=== PATIENT | female | born 1990 | race Caucasian/White ===

== ENCOUNTER 2017-10-02 11:48 | Emergency (ER) | payer MEDICAID ==
[~2017-10-02] VITALS: Ht 160 cm; Wt 60.6 kg
[~2017-10-02 11:48] MED LIST: CALC-649 PO; PREN1TAB49 PO
[2017-10-02 11:58] VITALS: Ht 160 cm; Wt 60.6 kg
--- NOTE | 2017-10-02 13:13 | ERD ---
ER Documentation Chief Complaint Chief Complaint FEVER [facility] PRODUCTIVE COUGH SINCE FRIDAY HPI Otherwise healthy 19-year-old female presents with a chief complaint of productive cough 4-5 days. Also describes pharyngitis and subjective fever. This morning when she was coughing she describes blood-tinged sputum that worried her so she comes to the emergency department for evaluation. Tylenol with minimal relief. Patient denies chills, body aches, meningismus, headache, shortness of breath, chest pain, dysphagia, change in voice, drooling, abdominal pain. Patient has no other complaints describes no other associated manifestations. ROS All systems reviewed and are negative except as per history of present illness. Medications Home Meds Active Scripts Benzonatate* (Tessalon Perle*) 100 Mg Capsule, 100 MG PO Q8H Y for COUGH for 3 Days, CAP Prov:JEANNINE GARCIA PA-C 10/02/17 Reported Medications Calcium Carbonate (Calcium) 1 Tab Tablet, 1 TAB PO BID 12/26/11 Vits W-Ca,Fe,Fa(<1MG) () 1 Tab Tablet, PO DAILY 12/23/11 Allergies Allergies: Coded Allergies: No Known Drug Allergies (Verified Allergy, 12/23/11) PMhx/Soc Medical and Surgical Hx: pt denies Medical Hx, pt denies Surgical Hx Hx Alcohol Use: No Hx Substance Use: No Hx Tobacco Use: No Smoking Status: Never smoker Physical Exam Vitals Vital Signs Date Time Temp Pulse Resp B/P Pulse Ox O2 Delivery O2 Flow Rate FiO2 10/02/17 11:58 99.8 87 18 143/82 97 Physical Exam Const: Healthy-appearing, well-nourished, well-developed, no acute distress. Throat: Erythematous oropharynx. No exudates visualized. Tonsils WNL. Moist mucous membranes. Neck: No posterior lymphadenopathy, masses or goiter palpated. Trachea midline. Full range of motion. Supple. ~ No meningismus. Skin: No petechiae or rashes. No ulcer, induration, jaundice. Good turgor. Resp: No dyspnea, stridor, tripoding or drooling. Good air movement. Clear to auscultation bilaterally. Head: Normocephalic, Atraumatic. Eyes: Non-injected; No scleral erythema, discharge or foreign body. EOMI bilaterally. PERRLA. Ears: Normal External Ears, EACs clear, TM normal bilaterally without erythema. Nose: Normal nose without discharge, septal deviation, or sinus tenderness. Cardio: Regular rate and rhythm; No murmurs, gallops or rubs auscultated. No JVD grossly observed. Radial and posterior tibial pulses 2+ bilaterally. Capillary refill less than 2 seconds. MS: Normal motor strength, normal tone with gross examination. Back: No midline, flank or CVA tenderness. Ext: No cyanosis, edema or palpable cord. Normal movement of all extremities grossly observed. Neur: Awake, alert and oriented x3. Neurovascularly intact bilaterally. Psych: Normal Mood and Affect. Procedures/MDM Otherwise healthy 27-year-old female presents with a chief complaint of cough and subjective fever 4 days, and blood-tinged sputum starting this morning. Patient has no difficulty breathing. X-ray obtained, read by the radiologist, given the following impression: Unremarkable. At this time a little suspicion for PE, pneumothorax, hemothorax, GI bleed, ACS, endangerment of the airway, pneumonia or other SBI. Most likely diagnosis is acute bronchitis versus other viral illness. No suspicion for bacterial involvement. Antibiotics not indicated at this time. We will give Tessalon Perles for symptomatic relief 3 days. I have spoke with the patient regarding their condition and future management. They have verbally responded that they understand their status and treatment plan. The patients vitals are stable, and their current condition is appropriate for discharge. The patient will be given discharge instructions with return precautions. Discharge medications: Tessalon Perles Departure Diagnosis: Primary Impression: Cough Condition: Stable Additional Instructions: Follow up with your PCP within the next 1-3 days for a more thorough evaluation and a possible referral to a specialist. Return the the emergency department immediately if symptoms worsen or change. If you have any questions regarding medications, ask your pharmacist or us before you leave. If any adverse reactions occur while taking your medications, discontinue the treatment and return to the emergency department immediately. Take your medications as directed, and complete the entire course of treatment. JEANNINE GARCIA PA-C Oct 02, 2017 13:13
[2017-10-02] MEDS ORDERED: BENZ100C70 PO (13:30)
--- NOTE | 2017-10-02 16:54 | RADRPT ---
PROCEDURE: XR Chest. CLINICAL INDICATION: Cough TECHNIQUE: AP Portable chest. COMPARISON: None available FINDINGS: The soft tissues and bones are normal. No focal infiltrates, masses, or effusions are noted. The m ediastinum and heart are normal. No pneumothorax is present. IMPRESSION: 1. No radiographic evidence for acute cardiopulmonary disease RPTAT: [facility] .Sheree Sage MD, Date Time Electronically viewed and signed by .Sheree Sage MD, on 10/02/2017 13:34 .C/
== END 2017-10-02 14:08 | disposition home or self-care (01) ==
LOC: FTE 11:48
DX: R05 Cough (principal)
CPT/HCPCS: 71010; Z7502

== ENCOUNTER 2018-10-17 08:53 | Emergency (ER) | payer MEDICAID ==
[~2018-10-17] VITALS: Wt 61.6 kg
[~2018-10-17 08:53] MED LIST changes: +BENZ-6 PO
[2018-10-17] MEDS ORDERED: NAPROXEN 500 MG TAB PO ONE (09:30)
[2018-10-17] MEDS ORDERED: PROM6.2515 PO (10:03)
[2018-10-17] MEDS ORDERED: NITR-58 PO (10:03)
[2018-10-17] MEDS ORDERED: NAPR-985 PO (10:03)
[2018-10-17] MEDS ORDERED: BENZ-6 PO (10:03)
--- NOTE | 2018-10-17 10:51 | ERD ---
ER Documentation Chief Complaint Chief Complaint L SIDED FLANK PAIN X 2 WEEKS HPI 28-year-old female presenting with left-sided flank pain times 2 weeks. Patient has had cough and mild chest pain when she coughs. Denies shortness of breath. Denies dysuria but feels pressure in the pelvic region and feels that she needs to urinate frequently. She has some mild occasional flank pain. Patient denies any vaginal bleeding. LNMP October 03. Denies medical problems. NKDA. Surgical history denies. Social history denies ROS All systems reviewed and are negative except as per history of present illness. Medications Home Meds Active Scripts Promethazine Hcl* (Promethazine Hcl* Syrup) 6.25 Mg/5 Ml Syrup, 6.25 MG PO Q6H PRN for COUGH, #100 ML Prov:DESTINY MAHAN PA-C 10/17/18 Benzonatate* (Tessalon Perle*) 100 Mg Capsule, 100 MG PO Q8H PRN for COUGH, #30 CAP Prov:DESTINY MAHAN PA-C 10/17/18 Naproxen* (Naprosyn*) 500 Mg Tablet, 500 MG PO BID PRN for PAIN AND/OR INFLAMMATION, #30 TAB Prov:DESTINY MAHAN PA-C 10/17/18 Nitrofurantoin Monohyd Macrocr* (Macrobid*) 100 Mg Capsr, 100 MG PO BID for 14 Days, CAP Prov:DESTINY MAHAN PA-C 10/17/18 Benzonatate* (Tessalon Perle*) 100 Mg Capsule, 100 MG PO Q8H PRN for COUGH for 3 Days, CAP Prov:JEANNINE GARCIA PA-C 10/02/17 Reported Medications Calcium Carbonate (Calcium) 1 Tab Tablet, 1 TAB PO BID 12/26/11 Vits W-Ca,Fe,Fa(<1MG) () 1 Tab Tablet, PO DAILY 12/23/11 Allergies Allergies: Coded Allergies: No Known Drug Allergies (Verified Allergy, Unknown, 10/17/18) PMhx/Soc Medical and Surgical Hx: pt denies Surgical Hx Hx Neurological Disorder: No Hx Respiratory Disorders: Yes (pneumonia) Hx Cardiac Disorders: No Hx Psychiatric Problems: No Hx Miscellaneous Medical Probl: No Hx Alcohol Use: Yes (socially) Hx Substance Use: No Hx Tobacco Use: No FmHx Family History: No diabetes, No coronary disease, No other Physical Exam Vitals Vital Signs Date Temp Pulse Resp B/P (MAP) Pulse Ox O2 O2 Flow FiO2 Time Delivery Rate 10/17/18 98.6 76 18 153/63 99 08:57 (93) Physical Exam GENERAL: The patient is well-appearing, well-nourished, in no acute distress HEENT: Atraumatic. Conjunctivae are pink. Pupils equal, round, and reactive to light. There is no scleral icterus. Tympanic membranes clear bilaterally. Oropharynx clear. No nystagmus or photophobia. CHEST: Clear to auscultation bilaterally. There are no rales, wheezes or rhonchi. HEART: Regular rate and rhythm. No murmurs, clicks, rubs or gallops. No S3 or S4. ABDOMEN:Soft, nontender and nondistended. Good bowel sounds. No rebound or guarding. No gross peritonitis. No gross organomegaly or masses. No Membreno sign or McBurney point tenderness. BACK: No midline or flank tenderness. Results 24 hrs Laboratory Tests Test 10/17/18 09:45 10/17/18 09:47 Bedside Urine pH (LAB) 7.0 Bedside Urine Protein (LAB) Trace Bedside Urine Glucose (UA) Negative Bedside Urine Ketones (LAB) Negative Bedside Urine Blood 2+ Bedside Urine Nitrite (LAB) Negative Bedside Urine Leukocyte Esterase (L Negative POC Beta HCG, Qualitative NEGATIVE Current Medications Medications Dose Sig/Layne Start Time Status Last (Trade) Ordered Route PRN Stop Time Admin Dose Reason Admin Naproxen 500 mg ONCE ONCE 10/17/18 DC 10/17/18 (Naprosyn) PO 09:30 09:59 10/17/18 09:31 Procedures/MDM ER course: Urine collected. Negative . MDM: 28-year-old female presenting with urinary symptoms. Patient may have symptomatic urine infection I will treat with antibiotics. I have low suspicion for pyelonephritis. I have low suspicion for septic stone. I have low suspicion for pelvic emergency. Exam is non-concerning and I did not feel that blood work or imaging is indicated. Patient likely is experiencing some rib space pain secondary to chronic cough and will be treated with symptomatic medications. Patient is discharged stricter precautions and told to follow-up with primary care. Patient is told symptoms change or worsen to immediately return to the ER. All questions answered discharge Departure Diagnosis: Primary Impression: Dysuria Condition: Stable Patient Instructions: Dysuria Referrals: [facility] YOU HAVE RECEIVED A MEDICAL SCREENING EXAM AND THE RESULTS INDICATE THAT YOU DO NOT HAVE A CONDITION THAT REQUIRES URGENT TREATMENT IN THE EMERGENCY DEPARTMENT. FURTHER EVALUATION AND TREATMENT OF YOUR CONDITION CAN WAIT UNTIL YOU ARE SEEN IN YOUR DOCTORS OFFICE WITHIN THE NEXT 1-2 DAYS. IT IS YOUR RESPONSIBILITY TO MAKE AN APPOINTMENT FOR FOLOW-UP CARE. IF YOU HAVE A PRIMARY DOCTOR --you should call your primary doctor and schedule an appointment IF YOU DO NOT HAVE A PRIMARY DOCTOR YOU CAN CALL OUR PHYSICIAN REFERRAL HOTLINE AT IF YOU CAN NOT AFFORD TO SEE A PHYSICIAN YOU CAN CHOSE FROM THE FOLLOWING [facility] CL[facility]ICS [facility] [address] [facility] [address] [facility] [facility] [address] [facility] [address] [facility] [address] [facility] [place]. [facility] [address] Additional Instructions: FOLLOW UP WITH YOUR PRIMARY CARE PHYSICIAN TOMORROW.Return to this facility if you are not improving as expected. DESTINY MAHAN PA-C Oct 17, 2018 10:51
== END 2018-10-17 10:10 | disposition home or self-care (01) ==
LOC: FTE 08:53
DX: R30.0 Dysuria (principal); R10.2 Pelvic and perineal pain
CPT/HCPCS: 81003; 81025; Z7610; 99283

== ENCOUNTER 2018-10-30 15:42 | Emergency (ER) | payer MEDICAID ==
[~2018-10-30] VITALS: Wt 62.1 kg
[~2018-10-30 15:42] MED LIST changes: +NAPR-985 PO; +NITR-58 PO; +PROM6.2515 PO
[2018-10-30 15:48] VITALS: BP 131/80; PULSE 78; RESP 18
[2018-10-30] MEDS ORDERED: AZIT250T PO (17:27)
[2018-10-30] MEDS ORDERED: ALBU18HF INHALATION (17:27)
--- NOTE | 2018-10-30 18:28 | ERD ---
ER Documentation Chief Complaint Chief Complaint FLU SYMPTOMS X 1 MONTH WITH DRY COUGH HPI 28-year-old female patient with no significant past medical history presents to ED complaining of flulike symptoms, dry cough. Patient reports that she has tried taking cough medication such as promethazine, Tessalon Perles without any relief. Denies any shortness of breath, wheezing, abdominal pain, nausea, vomiting, fever, chills. Reports that her daughter is sick with similar symptoms. ROS All systems reviewed and are negative except as per history of present illness. Medications Home Meds Active Scripts Albuterol Sulfate* (Ventolin HFA*) 18 Gm Hfa.aer.ad, 2 PUFF INHALATION Q4H, #1 INHALER Prov:UMBERTO HOFFMAN PA-C 10/30/18 Azithromycin* (Zithromax*) 250 Mg Tablet, 250 MG PO .ZPACK DIRECTED, #6 TAB TAKE 500 MG (2 TABS) THE FIRST DAY THEN 250 MG (1 TAB) DAYS 2-5 Prov:UMBERTO HOFFMAN PA-C 10/30/18 Promethazine Hcl* (Promethazine Hcl* Syrup) 6.25 Mg/5 Ml Syrup, 6.25 MG PO Q6H PRN for COUGH, #100 ML Prov:DESTINY MAHAN PA-C 10/17/18 Benzonatate* (Tessalon Perle*) 100 Mg Capsule, 100 MG PO Q8H PRN for COUGH, #30 CAP Prov:DESTINY MAHAN PA-C 10/17/18 Naproxen* (Naprosyn*) 500 Mg Tablet, 500 MG PO BID PRN for PAIN AND/OR INFLAMMATION, #30 TAB Prov:DESTINY MAHAN PA-C 10/17/18 Nitrofurantoin Monohyd Macrocr* (Macrobid*) 100 Mg Capsr, 100 MG PO BID for 14 Days, CAP Prov:DESTINY MAHAN PA-C 10/17/18 Benzonatate* (Tessalon Perle*) 100 Mg Capsule, 100 MG PO Q8H PRN for COUGH for 3 Days, CAP Prov:JEANNINE GARCIA PA-C 10/02/17 Reported Medications Calcium Carbonate (Calcium) 1 Tab Tablet, 1 TAB PO BID 12/26/11 Vits W-Ca,Fe,Fa(<1MG) () 1 Tab Tablet, PO DAILY 12/23/11 Allergies Allergies: Coded Allergies: No Known Drug Allergies (Verified Allergy, Unknown, 10/17/18) PMhx/Soc Hx Neurological Disorder: No Hx Respiratory Disorders: Yes (pneumonia) Hx Cardiac Disorders: No Hx Psychiatric Problems: No Hx Miscellaneous Medical Probl: No Hx Alcohol Use: Yes (socially) Hx Substance Use: No Hx Tobacco Use: No Smoking Status: Never smoker FmHx Family History: No diabetes, No coronary disease Physical Exam Vitals Vital Signs Date Temp Pulse Resp B/P (MAP) Pulse Ox O2 O2 Flow FiO2 Time Delivery Rate 10/30/18 98.1 78 18 131/80 99 15:48 (97) Physical Exam Const: [id number], well-nourished. In no acute distress. Head: Atraumatic, normocephalic Eyes: Normal Conjunctiva without injection. No purulent discharge. PERRL. EOMI ENT: Normal external ear. Ear canal without erythema. Tympanic membrane pearly chen without effusion or bulging. Nasal canal clear with normal turbinates. Moist oropharynx without tonsillar exudates. Non-erythematous pharynx. Uvula midline. No drooling. No trismus. Neck: Full range of motion. No meningismus. No cervical lymphadenopathy. Resp: Clear to auscultation bilaterally. No wheezing, rhonchi, rales, or crackles. No accessory muscle use. No retractions. Cardio: Regular rate and rhythm. No murmurs, rubs or gallops. Abd: Soft, non tender, non distended. Normal bowel sounds. No palpable masses. No rebound tenderness. No guarding. Skin: No petechiae or rashes Back: No midline tenderness. No CVA tenderness. Ext: No cyanosis, or edema. Neur: Awake and alert. Psych: Normal Mood and Affect Procedures/MDM 28-year-old female patient with no significant past medical history presents to the ED a cough that has been going on for the last month. Patient is afebrile and nontoxic-appearing. An inhaler, Zithromax was prescribed to patient as patient appears to have bronchitis. Patient will be covered for bacterial etiology. Low suspicion for acute myocardial infarction, pneumothorax, pericarditis, myocarditis, endocarditis, pneumonia, cardiac tamponade, pulmonary embolism, pleural effusion, AAA, aortic dissection, Boerhaave's syndrome, cardiac dysrhythmias,meningitis, intracranial bleed, seizure, stroke, TIA or other emergent conditions. Diagnosis: Cough, Rhinorrhea Discharge medications: Ventolin, Zithromax Follow up with primary care physician in 1-2 days. Instructed patient to return to the ED sooner for any worsening symptoms. Patient's questions were answered. Patient is hemodynamically stable. Patient understood and agreed with discharge plan. Patient discharged stable. Disclaimer: Inadvertent spelling and grammatical errors are likely due to EHR/dictation software use and do not reflect on the overall quality of patient care. Also, please note that the electronic time recorded on this note does not necessarily reflect the actual time of the patient encounter. Departure Diagnosis: Primary Impression: Cough Additional Impression: Rhinorrhea Condition: Stable Patient Instructions: Bronchitis, Antiobiotic Treatment (Adult) Referrals: [facility] YOU HAVE RECEIVED A MEDICAL SCREENING EXAM AND THE RESULTS INDICATE THAT YOU DO NOT HAVE A CONDITION THAT REQUIRES URGENT TREATMENT IN THE EMERGENCY DEPARTMENT. FURTHER EVALUATION AND TREATMENT OF YOUR CONDITION CAN WAIT UNTIL YOU ARE SEEN IN YOUR DOCTORS OFFICE WITHIN THE NEXT 1-2 DAYS. IT IS YOUR RESPONSIBILITY TO MAKE AN APPOINTMENT FOR FOLOW-UP CARE. IF YOU HAVE A PRIMARY DOCTOR --you should call your primary doctor and schedule an appointment IF YOU DO NOT HAVE A PRIMARY DOCTOR YOU CAN CALL OUR PHYSICIAN REFERRAL HOTLINE AT IF YOU CAN NOT AFFORD TO SEE A PHYSICIAN YOU CAN CHOSE FROM THE FOLLOWING [facility] [address] [facility]. [facility] [address] [facility] [address] [facility] [address] [facility]. [facility] [address] [facility]. [facility]. [address] [facility]. [facility] YOU HAVE RECEIVED A MEDICAL SCREENING EXAM AND THE RESULTS INDICATE THAT YOU DO NOT HAVE A CONDITION THAT REQUIRES URGENT TREATMENT IN THE EMERGENCY DEPARTMENT. FURTHER EVALUATION AND TREATMENT OF YOUR CONDITION CAN WAIT UNTIL YOU ARE SEEN IN YOUR DOCTORS OFFICE WITHIN THE NEXT 1-2 DAYS. IT IS YOUR RESPONSIBILITY TO MAKE AN APPOINTMENT FOR FOLOW-UP CARE. IF YOU HAVE A PRIMARY DOCTOR --you should call your primary doctor and schedule and appointment IF YOU DO NOT HAVE A PRIMARY DOCTOR YOU CAN CALL OUR PHYSICIAN REFERRAL HOTLINE AT . IF YOU CAN NOT AFFORD TO SEE A PHYSICIAN YOU CAN CHOSE FROM THE FOLLOWING [facility] INSTITUTIONS: [facility] [address] [place] [address] [facility] [address] [place] [address] [facility] [address] [place] [address] Additional Instructions: Call your primary care doctor TOMORROW for an appointment during the next 2-3 days.See the doctor sooner or return here if your condition worsens before your appointment time. UMBERTO HOFFMAN PA-C Oct 30, 2018 18:28
== END 2018-10-30 17:35 | disposition home or self-care (01) ==
LOC: FTE 15:42
DX: J34.89 Other specified disorders of nose and nasal sinuses (principal)
CPT/HCPCS: 99283